=== PATIENT | female | born 1950 | race Two or more races ===

== ENCOUNTER 2018-08-22 07:53 | Outpatient (CLI) | payer OTHER | END 2018-08-22 07:57 | disposition home or self-care (01) | LOC: SONOGRAMA 07:53 | DX: R22.2 Localized swelling, mass and lump, trunk (principal) ==

== ENCOUNTER 2022-05-10 07:27 | Day surgery (SDC) | payer OTHER | END 2022-05-10 12:25 | disposition home or self-care (01) | LOC: AMB-ENDOS 07:27 | PROVIDERS: ATTEND Surgery | DX: D12.2 Benign neoplasm of ascending colon (principal); K57.30 Diverticulosis of large intestine without perforation or abscess without bleeding; R19.4 Change in bowel habit; D37.4 Neoplasm of uncertain behavior of colon; Z20.822 Contact with and (suspected) exposure to COVID-19 ==